=== PATIENT | male | born 1975 | race Caucasian/White ===

== ENCOUNTER 2016-10-26 19:57 | Emergency (ER) | payer MEDICAID ==
[2016-10-26 20:13] VITALS: BP 148/90
== END 2016-10-26 22:36 | disposition home or self-care (01) ==
LOC: ED 19:57
DX: S40.012A Contusion of left shoulder, initial encounter (principal); S20.212A Contusion of left front wall of thorax, initial encounter; E11.9 Type 2 diabetes mellitus without complications; I10 Essential (primary) hypertension; Z79.4 Long term (current) use of insulin; X58.XXXA Exposure to other specified factors, initial encounter; Y93.89 Activity, other specified; Y99.8 Other external cause status; Y92.89 Other specified places as the place of occurrence of the external cause

== ENCOUNTER 2018-07-28 15:40 | Emergency (ER) | payer OTHER ==
[~2018-07-28] VITALS: Ht 175.3 cm; Wt 98.4 kg
[2018-07-28 16:03] VITALS: Ht 175.3 cm; Wt 98.4 kg
[2018-07-28 18:36] VITALS: BP 152/90
== END 2018-07-28 18:36 | disposition home or self-care (01) ==
LOC: ED 15:40
DX: K08.89 Other specified disorders of teeth and supporting structures (principal); I10 Essential (primary) hypertension; E11.9 Type 2 diabetes mellitus without complications